=== PATIENT | female | born 1990 | race Caucasian/White ===

== ENCOUNTER 2016-10-20 16:34 | Emergency (ER) | payer OTHER ==
[~2016-10-20] VITALS: Ht 175.3 cm; Wt 74.8 kg
[2016-10-20] MEDS ORDERED: ADDE30CA PO (16:55)
[2016-10-20] MEDS: KETOROLAC 30 MG/ML VIAL (J1885) IV ONE (18:56)
[2016-10-20] MEDS: NS 1,000 ML IV ONE (18:56)
[2016-10-20] MEDS: ONDANSETRON 4MG/2ML VIAL (J2405) IV ONE (18:56)
[2016-10-20 19:06] LABS: BASO % 0.3 % (0.0-1.0); EOS # 0.1 K/mm3 (0.0-0.50); EOS % 1.2 % (0.0-3.0); LARGE UNSTAINED CELL # 0.2 K/mm3 (0.0-0.4); LARGE UNSTAINED CELL % 2.8 % (0.0-4.0); LYMPH % 13.9 % (24.0-44.0); MEAN CORPUSCULAR HEMOGLOBIN 30.4 pg (27.0-33.0); MEAN CORPUSCULAR HGB CONC 32.7 g/dl (32.0-36.5); MEAN CORPUSCULAR VOLUME 93.1 fl (80.0-96.0); MONO # 0.6 K/mm3 (0.0-0.8); MONO % 9.1 % (0.0-5.0); NEUTROPHILS # 5.1 K/mm3 (1.8-7.7); NEUTROPHILS % 72.8 % (36.0-66.0); PLATELET COUNT, AUTOMATED 263 k/mm3 (150-450); RED CELL DISTRIBUTION WIDTH 12.5 % (11.5-14.5)
[2016-10-20 19:28] LABS: ALBUMIN 3.6 GM/DL (3.2-5.2); ALBUMIN/GLOBULIN RATIO 0.86 (1.00-1.93); ALKALINE PHOSPHATASE 71 U/L (45-117); ALT/SGPT 35 U/L (12-78); ANION GAP 6 MEQ/L (8-16); AST/SGOT 23 U/L (15-37); BILIRUBIN,DIRECT < 0.1 MG/DL (0.0-0.2); BILIRUBIN,TOTAL 0.2 MG/DL (0.2-1.0); BLOOD UREA NITROGEN 8 MG/DL (7-18); CALCIUM LEVEL 8.5 MG/DL (8.5-10.1); CARBON DIOXIDE LEVEL 29 MEQ/L (21-32); CHLORIDE LEVEL 105 MEQ/L (98-107); CREATININE FOR GFR 0.74 MG/DL (0.55-1.02); GLOMERULAR FILTRATION RATE > 60.0 (>60); GLUCOSE, FASTING 80 MG/DL (70-105); SODIUM LEVEL 140 MEQ/L (136-145); TOTAL PROTEIN 7.8 GM/DL (6.4-8.2)
[2016-10-20 20:14] LABS: CONTROL LINE UCG INT CTR LINE PRESENT
[2016-10-20] MEDS ORDERED: ISOVUE-370 76% 100ML VIAL (Q9967) As Ordered ONE (20:28)
[2016-10-20] MEDS ORDERED: ZOFR4TAB3 PO (21:10)
[2016-10-20 21:17] VITALS: BP 108/67
--- NOTE | 2016-10-20 21:36 | REP ---
Clinical: Right lower quadrant pain. Rule out appendicitis. Technique: Axial contrast enhanced images from the lung bases to the pubic symphysis using 100 ml Isovue 370 intravenous contrast material with coronal and sagittal re-formations. Findings: Lung bases clear. Visualized heart and pericardium normal. Liver demonstrates 1.3 cm presumed hemangioma in the posterior right lobe. Spleen, pancreas, bilateral adrenal glands and kidneys are normal. Cholelithiasis noted without CT evidence for acute cholecystitis. The enteric system is limited in evaluation due to paucity of intraperitoneal fat and lack of intraluminal contrast. No evidence for acute appendicitis. Few prominent lymph nodes in the right lower quadrant may reflect mesenteric adenitis and should be correlated clinically. Pelvis demonstrates normal bladder and age-appropriate uterus/adnexa. No ascites. No free air. No obvious adenopathy. Vasculature is normal. Surrounding musculoskeletal structures are intact. Impression: 1. No evidence for acute appendicitis. Cannot exclude mesenteric adenitis. 2. Cholelithiasis without CT evidence for acute cholecystitis. 3. 1.3 cm hemangioma in the posterior segment right lobe of the liver. Signed by Bertin Moffett MD 10/20/2016 09:27 P
== END 2016-10-20 21:35 | disposition home or self-care (01) ==
LOC: M ED 17:28
DX: R10.31 Right lower quadrant pain (principal); R11.0 Nausea; R19.7 Diarrhea, unspecified; F90.9 Attention-deficit hyperactivity disorder, unspecified type; F17.210 Nicotine dependence, cigarettes, uncomplicated
CPT/HCPCS: 36415; 74177; 80048; 80076; 81001; 83690; 84703; 85025; 96361; 96374; 96375; 99282; J1885; J2405; Q9967

== ENCOUNTER 2017-02-18 17:11 | Emergency (ER) | payer OTHER ==
[~2017-02-18] VITALS: Ht 175.3 cm; Wt 75.0 kg
[~2017-02-18 17:11] MED LIST: ADDE30CA3 PO; ZOFR4TAB3 PO
[2017-02-18] MEDS ORDERED: INDO25CA PO (17:22)
[2017-02-18] MEDS ORDERED: ADDE15CA3 PO (17:22)
[2017-02-18] MEDS ORDERED: KETOROLAC 30 MG/ML VIAL (J1885) IV ONE (18:30)
[2017-02-18 19:04] LABS: BASO # 0.1 K/mm3 (0.0-0.2); BASO % 0.9 % (0.0-1.0); EOS # 0.1 K/mm3 (0.0-0.50); EOS % 1.8 % (0.0-3.0); LARGE UNSTAINED CELL # 0.1 K/mm3 (0.0-0.4); LYMPH # 2.2 K/mm3 (1.5-6.5); LYMPH % 29.6 % (24.0-44.0); MEAN CORPUSCULAR HEMOGLOBIN 31.5 pg (27.0-33.0); MEAN CORPUSCULAR HGB CONC 33.5 g/dl (32.0-36.5); MONO # 0.4 K/mm3 (0.0-0.8); MONO % 6.1 % (0.0-5.0); NEUTROPHILS # 4.2 K/mm3 (1.8-7.7); NEUTROPHILS % 59.6 % (36.0-66.0); PLATELET COUNT, AUTOMATED 296 k/mm3 (150-450); RED CELL DISTRIBUTION WIDTH 12.8 % (11.5-14.5); WHITE BLOOD COUNT 7.1 K/mm3 (4.0-10.0)
[2017-02-18 19:17] LABS: ANION GAP 5 MEQ/L (8-16); BLOOD UREA NITROGEN 10 MG/DL (7-18); CALCIUM LEVEL 9.5 MG/DL (8.5-10.1); CARBON DIOXIDE LEVEL 30 MEQ/L (21-32); CHLORIDE LEVEL 102 MEQ/L (98-107); CREATININE FOR GFR 0.77 MG/DL (0.55-1.02); GLOMERULAR FILTRATION RATE > 60.0 (>60); GLUCOSE, FASTING 79 MG/DL (70-105); POTASSIUM SERUM 4.1 MEQ/L (3.5-5.1); SODIUM LEVEL 137 MEQ/L (136-145)
--- NOTE | 2017-02-18 19:52 | ECGEPIP ---
Stationary ECG Study [facility] - ED Test Date: 2017-02-18 Pat Name: BURTON DELUCA Department: Room: - Gender: F [employer] Machine Tender: sherine : 1990 Requested By: TRACI Haas Order Number: [id number] Reading MD: Raul Gibbs Measurements Intervals [place] Rate: 90 P: 60 MS: 157 QRS: 66 QRSD: 89 T: 57 QT: 337 QTc: 414 Interpretive Statements SINUS RHYTHM Electronically Signed On 02-18-2017 19:52:26 EDT by Raul Gibbs
[2017-02-18 22:34] VITALS: BP 110/59
--- NOTE | 2017-02-19 07:19 | REP ---
PA and lateral chest: There are no comparisons. The lung hercules are clear. The cardiac size is normal The estephania, mediastinum, and bony thorax are unremarkable. Impression: Negative PA and lateral chest. Signed by Ronnie Hatch MD 02/19/2017 07:10 A
--- NOTE | 2017-02-25 08:01 | ECGEPIP ---
Stationary ECG Study [facility] Test Date: 2017-02-18 Pat Name: BURTON DELUCA Department: Room: - Gender: F Multimedia Programmer: xiomara : 1990 Requested By: ABNER BOTELLO Order Number: [id number] Reading MD: Abner Sanchez Measurements Intervals [place] Rate: 71 P: 25 ND: 169 QRS: 71 QRSD: 92 T: 67 QT: 400 QTc: 438 Interpretive Statements SINUS RHYTHM Electronically Signed On 02-25-2017 8:01:04 EDT by Abner Sanchez
== END 2017-02-19 00:14 | disposition home or self-care (01) ==
LOC: M ED 17:11
DX: R07.89 Other chest pain (principal); F17.200 Nicotine dependence, unspecified, uncomplicated; Z79.899 Other long term (current) drug therapy
CPT/HCPCS: 36415; 71020; 80048; 81025; 82550; 82553; 85025; 85379; 93005; 93041; 96374; 99285; J1885

== ENCOUNTER 2018-07-12 15:20 | Emergency (ER) | payer OTHER | END 2018-07-12 16:51 | disposition home or self-care (01) | LOC: M ED 15:20 | DX: S60.211A Contusion of right wrist, initial encounter (principal); S60.212A Contusion of left wrist, initial encounter; W18.39XA Other fall on same level, initial encounter; Y92.830 Public park as the place of occurrence of the external cause; Z79.899 Other long term (current) drug therapy | CPT/HCPCS: 73110 ==

== ENCOUNTER 2018-09-14 13:58 | Emergency (ER) | payer OTHER ==
[~2018-09-14] VITALS: Ht 175.3 cm; Wt 75.0 kg
[~2018-09-14 13:58] MED LIST changes: +ADDE15CA3 PO; +INDO25CA PO; +ZOFR4TAB14 PO; -ZOFR4TAB3 PO
[2018-09-14] MEDS ORDERED: NS 1,000 ML IV ONE ×2 (14:30→16:45)
[2018-09-14 14:39] LABS: BASO % 0.3 % (0.0-1.0); EOS # 0.1 10^3/uL (0.0-0.50); EOS % 0.5 % (0.0-3.0); HEMATOCRIT 39.8 % (36.0-47.0); HEMOGLOBIN 13.6 g/dl (12.0-15.5); LYMPH # 1.9 10^3/uL (1.5-6.5); LYMPH % 20.9 % (24.0-44.0); MEAN CORPUSCULAR HEMOGLOBIN 32.5 pg (27.0-33.0); MEAN CORPUSCULAR HGB CONC 34.2 g/dl (32.0-36.5); MEAN CORPUSCULAR VOLUME 95.2 fl (80.0-96.0); MONO # 0.7 10^3/uL (0.0-0.8); MONO % 7.5 % (0.0-5.0); NEUTROPHILS # 6.4 10^3/uL (1.8-7.7); NEUTROPHILS % 70.5 % (36.0-66.0); PLATELET COUNT, AUTOMATED 262 10^3/uL (150-450); RED BLOOD COUNT 4.18 10^6/uL (4.00-5.40); WHITE BLOOD COUNT 9.1 10^3/uL (4.0-10.0)
[2018-09-14 14:53] LABS: INR 1.01; PARTIAL THROMBOPLASTIN TIME 28.1 SECONDS (25.4-37.6); PROTHROMBIN TIME 13.4 SECONDS (12.1-14.4)
[2018-09-14 15:05] LABS: HCG, SERUM QUALITATIVE NEGATIVE (NEGATIVE)
[2018-09-14 15:09] LABS: ALBUMIN 4.1 GM/DL (3.2-5.2); ALT/SGPT 18 U/L (12-78); BILIRUBIN,DIRECT 0.1 MG/DL (0.0-0.2); BILIRUBIN,TOTAL 0.3 MG/DL (0.2-1.0); BLOOD UREA NITROGEN 13 MG/DL (7-18); C REACTIVE PROTEIN QUANTITATIV < 0.30 MG/DL (0.00-0.30); CARBON DIOXIDE LEVEL 27 MEQ/L (21-32); CHLORIDE LEVEL 107 MEQ/L (98-107); CK-MB VALUE MASS < 1.0 NG/ML (<3.6); CPK CREATINE PHOSPHOKINASE 67 U/L (26-192); CREATININE FOR GFR 0.91 MG/DL (0.55-1.30); FREE T4 1.05 NG/DL (0.76-1.46); GLOMERULAR FILTRATION RATE > 60.0 (>60); GLUCOSE, FASTING 55 MG/DL (70-100); MB/CK RELATIVE INDEX 1.49 (< OR =4); POTASSIUM SERUM 3.8 MEQ/L (3.5-5.1); SODIUM LEVEL 140 MEQ/L (136-145); TROPONIN I < 0.02 NG/ML (< 0.10)
[2018-09-14 15:12] LABS: ERYTHROCYTE SEDIMENTATION RATE 4 mm/hr (0-20)
[2018-09-14 15:20] LABS: D-DIMER QUANT < 270.0 ng/ml (<500)
--- NOTE | 2018-09-14 15:59 | REP ---
CHEST, TWO VIEWS: There is no evidence of acute infiltrate. No pleural effusion is seen. The heart is normal in size. The mediastinal silhouette is unremarkable. The visualized osseous structures are intact. IMPRESSION: No acute pulmonary disease. Electronically Signed by Ronnie Villafuerte MD 09/14/2018 05:31 P
[2018-09-14] MEDS ORDERED: ISOVUE-370 76% 100ML VIAL (Q9967) As Ordered ONE (17:00)
[2018-09-14 17:45] VITALS: BP 126/74
--- NOTE | 2018-09-14 18:17 | REP ---
CT ANGIO CHEST: HISTORY: Tachycardia. CONTRAST: Isovue-370, 75 mL. There are no filling defects in the main, right and left pulmonary arteries or their branches. The lungs are clear. There is no pleural effusion. The heart is normal in size. There is no aneurysm. There is no mediastinal mass. The bony structure is intact. IMPRESSION:There is no pulmonary embolism. Electronically Signed by Sriram French MD 09/14/2018 06:19 P
--- NOTE | 2018-09-14 19:10 | ECGEPIP ---
Stationary ECG Study [facility] - ED Test Date: 2018-09-14 Pat Name: BURTON DELUCA Department: Room: - Gender: F Prison Guard Supervisor: mark : 1990 Requested By: ALMA Peng Order Number: [id number] Reading MD: Yvonne Winters Measurements Intervals [place] Rate: 100 P: 57 [place]: 150 QRS: 57 QRSD: 90 T: 46 QT: 338 QTc: 437 Interpretive Statements SINUS TACHYCARDIA ABNORMAL RHYTHM ECG INCREASED RATE 02/18/17 Electronically Signed On 09-14-2018 19:10:19 EST by Yvonne Winters
== END 2018-09-14 17:57 | disposition home or self-care (01) ==
LOC: EDBD 13:58 → M ED 13:58
DX: R00.2 Palpitations (principal)
CPT/HCPCS: 71046; 71275; 80048; 80076; 82550; 82553; 84439; 84443; 84484; 84703; 85025; 85379; 85610; 85652; 85730; 86140; 93005; 93041; 94760; 96360; 96361; 99285; Q9967

== ENCOUNTER → 2019-01-02 | Outpatient (CLI) | payer OTHER ==
--- NOTE | 2019-01-02 15:05 | REP ---
Clinical: Cough . Comparison: 09/14/2018 of the . Technique: PA and lateral. Findings: The mediastinum and cardiac silhouette are normal. The lung hercules are clear and without acute consolidation, effusion, or pneumothorax. The skeletal structures are intact and normal. Impression: 1. No acute cardiopulmonary process. Electronically Signed by Bertin Moffett MD 01/02/2019 02:56 P
== END ==
LOC: M LRY 14:40
PROVIDERS: ATTEND Physician Assistant
DX: R05 Cough (principal)
CPT/HCPCS: 71046; G0463

== ENCOUNTER 2019-06-08 15:02 | Emergency (ER) | payer OTHER ==
[~2019-06-08] VITALS: Ht 175.3 cm; Wt 75.6 kg
[~2019-06-08 15:02] MED LIST changes: +INDO-16 PO; -INDO25CA PO
[2019-06-08] MEDS ORDERED: ADDE10CA3 PO (15:07)
--- NOTE | 2019-06-08 16:25 | REP ---
Four views left ankle: 06/08/2019. Indication: Pain following injury. Comparison: None. Findings: There is no acute fracture, subluxation or dislocation. No erosive osseous abnormalities are present. Impression: No acute fracture. Electronically Signed by Kevin Jones DO 06/08/2019 04:16 P
[2019-06-08 17:34] VITALS: BP 109/59
== END 2019-06-08 17:37 | disposition home or self-care (01) ==
LOC: M ED 15:02
DX: S93.402A Sprain of unspecified ligament of left ankle, initial encounter (principal); X50.1XXA Overexertion from prolonged static or awkward postures, initial encounter; Y92.89 Other specified places as the place of occurrence of the external cause; Y93.01 Activity, walking, marching and hiking; Y99.1 Military activity; Z79.899 Other long term (current) drug therapy